=== PATIENT | male | born 1990 | race Caucasian/White ===

== ENCOUNTER 2019-02-27 18:24 | Emergency (ER) | payer BC, SELFPAY ==
[2019-02-27 18:30] VITALS: BP 137/64; PULSE 110; RESP 16; TEMP 36.6; O2SAT 93
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
--- NOTE | 2019-02-27 19:00 | NUR.NOTE ---
Nursing Note: Suture kit at bedside
--- NOTE | 2019-02-27 19:18 | NUR.NOTE ---
Nursing Note: Provider in to suture laceration. Patient cooperative at this time
--- NOTE | 2019-02-27 19:45 | NUR.NOTE ---
Nursing Note: Bacitracin to laceration. Tube gauze over left index finger. Patient tolerated well. S.O. back at bedside.
[2019-02-27 19:59] VITALS: BP 123/56; PULSE 95; RESP 16; O2SAT 100
== END 2019-02-27 19:55 | disposition home or self-care (01) ==
LOC: ER 20:01
PROVIDERS: Emergency Provider Physician Assistant; PCP Family Medicine
DX: S61.210A Laceration without foreign body of right index finger without damage to nail, initial encounter (principal); W25.XXXA Contact with sharp glass, initial encounter; Z53.29 Procedure and treatment not carried out because of patient's decision for other reasons
CPT/HCPCS: 12002

== ENCOUNTER 2019-09-03 21:03 | Emergency (ER) | payer BC, SELFPAY ==
[2019-09-03 21:07] VITALS: BP 131/67; PULSE 98; RESP 20; TEMP 36.6; O2SAT 100
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
--- NOTE | 2019-09-03 22:56 | DI.RAD_ITS ---
EXAM: XR FOOT RT COMPLETE CLINICAL HISTORY: pain. TECHNIQUE: 2D digital imaging was performed. COMPARISON: No exams were available for comparison FINDINGS: BONES: No acute fracture is present. No bony destructive lesion is seen. The bony detail in the fore foot and midfoot is limited due to the overlying bandages. JOINTS: No dislocation present. SOFT TISSUE: There is soft tissue swelling of the forefoot. No radiopaque foreign bodies are seen in the soft tissues. IMPRESSION: No acute fracture, dislocation or radiopaque foreign body. DATA REPOSITORY: RADIATION DOSE DELIVERED:
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
[2019-09-04] MEDS: Ciprofloxacin 500 MG TAB PO (00:48)
[2019-09-04 01:14] VITALS: BP 134/86; PULSE 86; RESP 18; TEMP 37.3; O2SAT 97
== END 2019-09-04 00:56 | disposition home or self-care (01) ==
PROVIDERS: Emergency Provider Physician Assistant; PCP Family Medicine
DX: S92.81 Other fracture of foot (principal); S91.311A Laceration without foreign body, right foot, initial encounter; V94.0XXA Hitting object or bottom of body of water due to fall from watercraft, initial encounter; F10.120 Alcohol abuse with intoxication, uncomplicated
CPT/HCPCS: 12004; 90471; 99283; 73630; 99282; E0114

== ENCOUNTER 2022-08-31 15:29 | Emergency (ER) | payer SELFPAY ==
[2022-08-31 15:33] VITALS: BP 119/65; PULSE 90; RESP 20; TEMP 36.8; O2SAT 100
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
--- NOTE | 2022-08-31 15:59 | W.ED.GENAD ---
Discharge Plan Disposition Patient Disposition: Home Discharge Details Clinical Impression: Fracture, patella, Bony exostosis, Closed dislocation of left patella Primary Care Provider: Rosamaria Hernandez V ED Provider: Handy Su Home Meds and New Rx's Prescriptions: Discontinued ciprofloxacin HCl [Cipro] 500 mg tablet 500 mg PO BID Qty: 14 0RF Patient Comments: Rx finished nicotine [Nicoderm CQ] 21 mg/24 hr Patch 24 Hour 1 patch .Q24 HOURS Patient Comments: does not use Discharge Instructions Instructions: Patellar Fracture (ED), Patellar Dislocation (ED), Knee Immobilizer (ED) Additional Instructions: You may continue to use uenu-xpe-[id number] pain medication such as acetaminophen or ibuprofen for pain, apply ice for swelling, and keep immobilizer on. Please call the orthopedic office on Friday for arrangement of follow-up appointment and feel free to return the emergency department for any new or significant worsening of symptoms. You may use your home crutches as needed but also perform weightbearing activities as tolerated. Stand Alone Forms: Work Release Referrals: [facility] [Provider Group] (Please call the office on Friday for arrangement of follow-up appointment) Discharge Data Discharge Date/Time-TO BE ENTERED AT DEPARTURE: 08/31/22 17:53 Medical Decision Making Patient presenting to the emergency department for chief complaint of left knee injury. Patient states he was out fishing and caught his foot on a rock and had a twisting type motion with injury to his knee. He stated he looked down and his kneecap had been significantly displaced laterally. States he struck his knee on the lateral aspect really hard 3 times and finally got the kneecap to go back into place. Afterwards he made a makeshift splint and got himself out of the lorenzo. Patient denies any other injury or trauma. States no previous history of patellar dislocation or knee problems. Physical exam shows significant difficulty with any ligamentous testing due to pain and discomfort, patella is aligned to midline at this point. Any palpation of the patella or attempted movement of the patella causes significant pain and discomfort. Exam is otherwise unremarkable. We will perform radiological imaging for evaluation of suspected patellar dislocation and fracture. Pending results will give patient ketorolac Review of radiological imaging shows appropriate alignment of patella with medial patellar fracture. There is also an abnormal bony exostosis noted on the distal femur. Will refer patient to orthopedics. Patient placed in knee immobilizer and was offered crutches but patient states he already has crutches at home. Patient instructed on management of injury along with return and follow-up precautions. After discussion of diagnosis and plan of care patient has no further needs, questions, or concerns and states clear understanding to return to the emergency department for any worsening symptoms. This documentation was generated using [employer] dictation system, please disregard any oddities of phrase or misspellings. Imaging Data Radiologic Study: Imaging: X-Ray Radiologist's impression: Exam(s) PROCEDURE INFORMATION: Exam: XR Left Knee Exam date and time: 08/31/2022 4:20 PM Age: 31 years old Clinical indication: Pain; Left; Patient HX: Knee injury, patellar dislocation TECHNIQUE: Imaging protocol: Radiologic exam of the left knee. Views: 4 or more views. COMPARISON: No relevant prior studies available. FINDINGS: Bones/joints: There is a fairly large bony exostosis in the posterior aspect of the distal femoral shaft. Patella is anatomically aligned. There is a medial bone density chip seen likely from the medial wall of the patella. There appears to be a lipohemarthrosis present in the joint. Bony alignment is otherwise anatomic. Soft tissues: Normal. IMPRESSION: 1. Medial patellar fracture, minimal with anatomic alignment and small lipohemarthrosis. 2. Distal femur posterior bony exostosis. Follow-up recommended. HPI General Mode of arrival: wheelchair. Date/Time Provider Initiated Documentation: 08/31/22 15:37. Limitations to Documentation: no limitations. Information obtained by: patient, family and RN notes reviewed. History of Present Illness 31 year old M presents to the emergency department with the chief complaint of left knee injury, described as moderate, Quality is described as aching and sharp, and is localized to the left and lower extremity. Patient reports no radiation. Patient started experiencing this hour(s) (7) and it has been constant. Immobilization improves symptom(s), Movement worsens symptoms . Patient notes no other symptoms.. Patient did receive the following treatments prior to arrival, none Related Data Allergies Allergy/AdvReac Type Severity Reaction Status Date / Time No Known Allergies Allergy Unverified 08/31/22 15:39 General Stated Complaint: Orthopedic SHABBIR: 3 Review of Systems Narrative: 6 systems reviewed and unremarkable except what is marked below. Musculoskeletal Musculoskeletal: Reports as per HPI, Reports arthralgias, Reports joint swelling, Reports limited range of motion, Denies numbness and Denies tingling Neurologic Neurologic: Denies numbness and Denies tingling PFSH All Active Problems (Updated 08/31/22 @ 17:31 by Handy Su NP) Fracture, patella (Acute) Bony exostosis (Acute) Closed dislocation of left patella (Acute) Medical History (Updated 08/31/22 @ 17:31 by Handy Su NP) No significant past medical history Surgical History History of hand surgery Social History Smoking/Tobacco Use Status: Current every day Tobacco Type: cigarettes Smoking risk assessment performed?: Yes Drug use: Never Do you feel safe at home: Yes Do you feel safe in your relationship?: Yes Exam Const General: cooperative, no acute distress and not ill appearing Orientation: alert, awake and oriented x3 HENMT Mouth: moist mucous membranes Resp Effort & Inspection: normal respiratory effort, able to speak in complete sentences and no respiratory distress Cardio Rate: regular rate Rhythm: regular rhythm Pulses: normal peripheral pulses Skin General skin exam: no rashes or lesions noted Neuro General: patient alert, patient awake, patient oriented x3, moves all extremities and no focal motor deficits Sensory Exam: no sensory deficits noted Extrem General: normal exam except as noted Left lower extremity: knee Details: tenderness Location: of the patella and of the lateral joint line, swelling Location: of the patella and abnormal ROM Details: held in an abnormal fashion Details: in extension, pain with active ROM and pain with passive ROM; able to extend lower leg actively Course Vital Signs Vital signs: Vital Signs Temperature 36.8 C 08/31/22 15:33 Pulse 90 08/31/22 15:33 Respiratory Rate 20 08/31/22 15:33 Blood Pressure 119/65 08/31/22 15:33 Pulse Oximetry 100 08/31/22 15:33 Temperature 36.8 C 08/31/22 15:33 Temperature Source Skin 08/31/22 15:33 Pulse 90 08/31/22 15:33 Respiratory Rate 20 08/31/22 15:33 Blood Pressure 119/65 08/31/22 15:33 Blood Pressure Position Sitting 08/31/22 15:33 Pulse Oximetry 100 08/31/22 15:33 Oxygen Delivery Method Room Air 08/31/22 15:33 Oxygen Flow Rate 0 08/31/22 15:33 Pain Level 5 08/31/22 15:33
[2022-08-31] MEDS: Ketorolac 10 MG TAB PO (16:04)
--- NOTE | 2022-08-31 16:34 | DI.VRAD_ITS ---
PROCEDURE INFORMATION: Exam: XR Left Knee Exam date and time: 08/31/2022 4:20 PM Age: 31 years old Clinical indication: Pain; Left; Patient HX: Knee injury, patellar dislocation TECHNIQUE: Imaging protocol: Radiologic exam of the left knee. Views: 4 or more views. COMPARISON: No relevant prior studies available. FINDINGS: Bones/joints: There is a fairly large bony exostosis in the posterior aspect of the distal femoral shaft. Patella is anatomically aligned. There is a medial bone density chip seen likely from the medial wall of the patella. There appears to be a lipohemarthrosis present in the joint. Bony alignment is otherwise anatomic. Soft tissues: Normal. IMPRESSION: 1. Medial patellar fracture, minimal with anatomic alignment and small lipohemarthrosis. 2. Distal femur posterior bony exostosis. Follow-up recommended. Dictated and Authenticated by: Marla Hernández MD. Ordering:KEAGAN Murrell MD
[2022-08-31 16:44] VITALS: O2SAT 99
[2022-08-31 16:50] VITALS: O2SAT 96
[2022-08-31 17:00] VITALS: O2SAT 97
== END 2022-08-31 17:53 | disposition home or self-care (01) ==
PROVIDERS: Emergency Provider Nurse Practitioner Family; PCP Family Medicine
DX: S82.002A Unspecified fracture of left patella, initial encounter for closed fracture (principal); M89.9 Disorder of bone, unspecified; W01.0XXA Fall on same level from slipping, tripping and stumbling without subsequent striking against object, initial encounter
CPT/HCPCS: 29505; 99283; 73564

== ENCOUNTER 2022-09-26 02:21 | Outpatient (CLI) | payer MEDICAID, SELFPAY ==
--- NOTE | 2022-09-26 09:00 | DI.MRI_ITS ---
Exam(s) MR LOWER JOINT LT WO EXAM: MR LOWER JOINT LT WO CLINICAL HISTORY: PATELLAR DISCLOCATION,DISTAL FEMUR OSTEOCHONDROMA.FX,BONY EXOSTOSIS. TECHNIQUE: Multiplanar multisequence MRI was performed. COMPARISON: CR,XR XR KNEE LT 4V AP,LAT,MARU,PAT from 08/31/2022 03 September 2022 FINDINGS: BONES: Fracture at the inferomedial border of the patella. Severe contusion of the anterior portion lateral femoral condyle. Mild contusion of the posterior aspect of the lateral tibial plateau. Larg e exostosis seen off the posteromedial aspect of the distal femoral metaphysis. There is surrounding edema in the musculature but no evidence of a mass. JOINTS: A large joint effusion is present. Articular cartilage: Patellofemoral joint: Articular cartilage is unremarkable. Medial femoral tibial joint: Articular cartilage is unremarkable. Lateral femoral tibial joint: Articular cartilage is unremarkable. TENDONS: Extensor mechanism: There is edema within fibers of distal quadriceps tendon but no focal tear is vis ible. Patellar tendon appears intact. Medial retinaculum: Significant surrounding edema. No focal tear visible. Lateral retinaculum: Unremarkable. Popliteus: Unremarkable. MUSCLES: Unremarkable. MENISCI: The medial meniscus shows a horizontally oriented tear extending to the superior articular s urface. Additional stellate tear in the body. The lateral meniscus is unremarkable. SOFT TISSUES: Edema in the subcutaneous fat greatest anteriorly. LIGAMENTS: Anterior Cruciate: Small amount of surrounding edema but no evidence of tear. Posterior Cruciate: Unremarkable. Medial Collateral:Surrounding edema but no visible tear. Lateral Collateral: Unremarkable. IMPRESSION: Fracture at the inferomedial border of the patella. Severe contusion of the lateral femoral condyle. Complex tear of the body and posterior horn of the medial meniscus. Large exostosis of the distal femur without suspicious features. DATA REPOSITORY:
== END 2022-09-26 02:41 ==
LOC: DI 02:21
PROVIDERS: PCP Family Medicine; Visit Provider Student in an Organized Health Care Education/Training Program
DX: S82.022A Displaced longitudinal fracture of left patella, initial encounter for closed fracture; S80.01XA Contusion of right knee, initial encounter; S83.231A Complex tear of medial meniscus, current injury, right knee, initial encounter; X58.XXXA Exposure to other specified factors, initial encounter
CPT/HCPCS: 73721

== ENCOUNTER 2022-10-18 02:02 | Outpatient (CLI) | payer MEDICAID, SELFPAY ==
[2022-10-18 14:44] LABS: Calculated LDL 124 mg/dL (<100); Cholesterol 184 mg/dL (<200); HDL Cholesterol 52 mg/dL (40-60); Triglyceride 44 mg/dL (<150)
== END 2022-10-18 02:03 | disposition home or self-care (01) ==
PROVIDERS: PCP Family Medicine; Visit Provider Family Medicine
DX: Z13.220 Encounter for screening for lipoid disorders (principal); Z13.1 Encounter for screening for diabetes mellitus; Z00.00 Encounter for general adult medical examination without abnormal findings
CPT/HCPCS: 36415; 80061; 83036

== ENCOUNTER 2022-10-24 08:31 | Day surgery (SDC) | payer MEDICAID, SELFPAY ==
[2022-10-24] VITALS (11 sets, daily range): BP systolic 115–138; BP diastolic 66–86; PULSE 75–90; RESP 11–16; TEMP 36.1–36.7; O2SAT 94–99; BMI 28.0
--- NOTE | 2022-10-24 07:20 | PDOC.DSDIS_ITS ---
Date of service: 10/24/22 Time of Service: 15:00 Discharge Plan Disposition Patient Disposition: Home Condition: Stable Discharge Details Attending Provider: Ashish Joseph Primary Care Provider: Rosamaria Hernandez V Home Meds and New Rx's Prescriptions: New naproxen 250 mg tablet 250 - 500 mg PO BID PRNQty: 40 0RF Rx Instructions: take with a meal aspirin 81 mg tablet,delayed release (DR/EC) 81 mg PO DAILY 30 Days Qty: 30 0RF oxycodone 5 mg tablet 5 - 10 mg PO Q4H MDD 30 mg PRN (Reason: moderate to severe pain) Qty: 18 0RF Discharge Instructions Additional Instructions: Surgery: Left knee arthroscopy with medial meniscus repair and bone marrow stimulation, and open MPFL avulsion repair Activity: Weightbearing in full extension-only for 6 weeks. Use crutches and/or brace as needed to protect and maintain knee straight. Seated/ non- weight bearing flexion 0-90 degrees maximum for 6 weeks. 120 degrees maximum flexion for 8 weeks. Spin/bike after 8 weeks. No weighted deeper flexion (squats, lunges) for 10 weeks. A physical therapy prescription will be sent electronically to start in about 2-3 weeks. Recommend elevation to minimize swelling discomfort. Wiggle toes and perform ankle pumps to reduce risk of blood clot and prevent stiffness. Prescriptions: Aspirin 81 mg take 1 daily to prevent a blood clot for 30 days Naproxen 250 mg take 1-2 every 12 hours with a meal as needed for moderate pain Oxycodone 5 mg take 1-2 every 4-6 hours as needed for severe pain You may use uhoy-apm-dxtharr Tylenol (acetaminophen) as needed for mild pain. These pain medications may be taken all at once or in different combinations as needed. Also, recommend Colace (docusate) as a stool softener as surgery and pain medicine cause constipation. You may try cjwk-qpk-fanciex diphenhydramine (Benadryl) 25-50 mg nightly as a sleep aid Dressings: Leave dressing in place for 5 days. May then remove and leave open to air or cover incisions with Band-Aids. Leave the sticky Steri-Strips in place until they fall off or remove them after you shower. May shower after 7 days. Follow-up: 10-[address] Joseph You may take off the leg compression stockings this evening at home. You may also leave them on a few days longer if you have a history of leg swelling or edema. Let us know right away if you develop any redness, drainage, fevers, chest pain, or trouble breathing. Do not drink alcohol or drive for at least 24 hours after anesthesia. Please call the office during business hours with any questions or concerns. DS: Diagnosis Discharge Diagnosis (1) Closed dislocation of left patella: Status: Acute (2) Tear of medial meniscus of left knee: Status: Acute
--- NOTE | 2022-10-24 07:21 | ROE_ITS ---
Date of service: 10/24/22 Time of Service: 11:00 Operative Note Operative Note DATE OF PROCEDURE: 10/24/22 PRE-OP DIAGNOSIS: Left knee 1. Medial meniscus tear 2. Patella dislocation POST-OP DIAGNOSIS: same PROCEDURE: Left knee 1. Arthroscopic medial meniscus repair, CPT #97315 2. Arthroscopic intercondylar microfracture as a bone marrow stimulation, CPT #04759 3. Open medial patellofemoral ligament avulsion repair, CPT #58369 SURGEON: Ashish Joseph ELECTRICAL RESEARCH ENGINEER: Jose C Sanderson ANESTHESIA TYPE: Local By Surgeon and General LMA/ETT Refer to Anesthesia Record ESTIMATED BLOOD LOSS: 5 PATHOLOGY: none sent TOURNIQUET TIME: 0 Patient was transported to: PACU Patient's condition: stable Implants: Arthrex FiberStitch x4 Arthrex 4.75 mm SwiveLock x1 Indications: Please see complete medical record for details. Findings: Exam under anesthesia: Full range of motion, stable varus valgus Ozzy and anterior drawer. Moderately excessive lateral patella translation without dislocation. No lateral tightness or tilt. Arthroscopic findings: Moderate hemorrhagic synovitis and moderate effusion. Complex posterior horn medial meniscus tear predominantly vertical red zone with some central horizontal component involving the red-white zone but majority of the tear near the capsular margin. Stable posterior horn near the root, stable root, uninjured body and anterior horn. Intact ACL. Intact cuticular cartilage. Intact lateral meniscus. Visualized just on the far side of the capsule medial patellar ovoid avulsion injury tissue. Procedure Description: In the operating room, general anesthesia was induced. The patient was positioned supine on the operating room table. All bony prominences were well- padded. Preoperative antibiotics were administered. The knee was prepped and draped in the usual sterile fashion. The correct patient, procedure, and side of the procedure were all verified prior to incision. Exam under anesthesia was performed. 20 cc of bupivacaine and epinephrine containing epinephrine were infiltrated about the planned anteromedial and anterolateral portals as well as about the medial parapatellar incision. The portals were established and a complete diagnostic arthroscopy was performed with relevant findings detailed above. Of note, the bulbous defect on the MRI corresponding to the medial patellar defect was visualized as extracapsular. A needle was used to localize this lesion for later open repair. A minor synovectomy was done using mechanical shaver to remove abundant inflamed synovium from the patellofemoral and intercondylar areas. The medial meniscus was thoroughly probed and inspected. Given the patient's young age and predominantly red zone vertical type tear, the decision was made to proceed with repair. An 8 x 3 mm passport was placed in the anteromedial portal. The anterior lateral portal was dilated to best accommodate instrument passage. The meniscal rasp was used to abrade the tear zone thoroughly and attempt to optimize tissue healing. The shaver was used to lightly debride the tear zone. The knee was positioned in full extension with valgus stress. Viewing through anterior medial and working through the anterior lateral portal the all?inside meniscus repair was completed using Arthrex FiberStich. Initial vertical mattress repair stitch was placed and then removed given less than ideal reduction, and replaced with another initial repair suture in the mid to anterior zone of the tear to reapproximate the tear edges,. Additional vertical mattress repair stitches were placed more posteriorly and anteriorly to the initial middle. Once these were tensioned, as expected, the provisional repair suture was somewhat loose and removed. It was replaced with a final fourth vertical repair suture. The repair was stable. There were no additional tears, the root remained stable. A small 1.1 mm K wire was then directed from anterior lateral to the bare area distal to the PCL attachment on the medial femoral condyle and used to make multiple drilling perforations into the subchondral bone as a microfracture to aid in isolated meniscal repair healing. Proper expression of bone marrow elements was confirmed with inflow turned off. The knee was drained of arthroscopic fluid. A small longitudinal medial parapatellar incision was made using the needle localization centrally. There was some healing about the medial aspect of the patella but the defect was readily encountered with probes. The medial margin of patella was rasped to improve bone tissue healing. The gibson and firm avulsed tissue was probed adjacent to the medial facet patellar injury. It was fairly stable, but not healed to the medial bony margin of patella. Although the MPFL attaches more proximally the patellar defect was more inferiomedial so repair was centered at the medial aspect of the patella to incorporate both the avulsed fragment tissue and the MPFL surrounding tissue. A 2.5 mm drill was used to drill a 20 mm hole for the suture anchor centrally taking care to direct into the midportion of the patella. The SwiveLock tap was then used to finish preparation and a 4.75 mm bio composite swivel lock anchor was deployed having been loaded with 2 pairs of suture tape. A free needle was then used to shuttle the 4 free suture tape ends from deep to superficial incorporating the firm avulsed tissue spanning the zone of injury from proximal to distal. The knee was positioned in about 30 degrees of flexion, patella position appropriately in the trochlear groove, each pair was then tied securing the repair to the medial aspect of the patella quite well. The FiberWire sliding sutures were then used to adjunct the repair with a free needle used to pass each corresponding pair into the medial and lateral tissue more superficially and then secured [id number] bringing additional tissue and tension up onto an adjacent to the repair and medial aspect of the patella. The patella was examined in extension and demonstrated appropriate lateral translation with strong endpoint. Appropriately mobile and positioned into the groove into flexion. The open incision was copiously irrigated normal saline. An additional 10 cc of 0.25% bupivacaine plain was infiltrated about the open incision site. Subcutaneous tissue was closed with 2-0 Monocryl buried interrupted. Skin lucia sed using 3-0 Monocryl running subcuticular. Steri-Strips and Xeroform applied over the incision. The anteromedial and anterolateral portals were closed in 3- 0 Monocryl in a buried interrupted fashion. Mastisol, Steri-Strips, and 4 x 4 gauze were applied over the incisions followed by sterile soft roll. The knee was then wrapped gently with an RIVER comressive bandage and placed into a knee immobilizer in extension. The patient awoke from anesthesia without complication and was transferred to the recovery room in a stable condition.
--- NOTE | 2022-10-24 09:31 | W.ANESPRE ---
General Info Date of Service Date Performed: 10/24/22 Height: 6 ft Weight: 93.7 kg Body Mass Index (BMI): 28.0 Surgical Procedure: Operation Date: 10/24/22 10:10 Proposed Procedure Side Surgeon p Knee Arthroscopy w Meniscus Repair, any indicated meniscal, chondral and synovial surgery Left Ashish Joseph MD Meds Allergies and Home Medications Allergies Allergy/AdvReac Type Severity Reaction Status Date / Time varenicline [From Chantix] Allergy Intermediate Hives Unverified 10/24/22 08:48 Home Medication Medication Instructions Recorded Unknown [No Known Home Meds] 09/10/22 Current Visit Medications: Current Medications Generic Name Dose Route Start Last Admin Trade Name Freq PRN Reason Stop Dose Admin Ringer's Solution 1,000 mls @ 30 mls/hr 10/24/22 06:00 IV 11/22/22 23:59 INFUSION JAMIA Cefazolin Sodium/Dextrose 2 gm in 50 mls @ 100 mls/hr 10/24/22 06:00 Ancef Duplex IVPB 10/24/22 16:00 PREOP JAMIA IV Miscellaneous Supplies 1 each 10/24/22 06:00 Iv Access IV 11/22/22 23:59 DIRECTED JAMIA Sodium Chloride 0 ml 10/24/22 06:00 Normal Saline Flush 10 Ml Syr IV 11/22/22 23:59 PRN PRN Sodium Chloride 0 ml 10/24/22 06:00 Normal Saline 10 Ml Vial IJ 11/22/22 23:59 DIRECTED PRN Sterile Water 0 ml 10/24/22 06:00 Water,Injection,Sterile 10 Ml Vial IJ 11/22/22 23:59 DIRECTED PRN PFSH Active Problems Active Problems: Problem Status Onset Code Closed dislocation of left patella 08/31/22 S83.005A Left patella fracture ~08/31/22 S82.002A Tear of medial meniscus of left knee ~08/31/22 S83.242A Medical History Medical History No significant past medical history Medical History Comments:: Per pt as he was waking from anesthesia on past surgery he was told he was trying to get out of bed to leave and needed to be restrained possiby/redirected. Surgical History Surgical History History of hand surgery Tobacco Smoking/Tobacco Use Status: Current every day Tobacco Type: cigarettes Smoking cigarettes per day: 10 Alcohol Alcohol Intake: current Alcohol intake frequency: a few times a week Alcohol type: beer Substance Use Substance use: Never Substance use type: does not use Vital Signs and Lab Results Vital Signs Most Recent Vital Signs in EMR: Most Recent Vital Signs Temp Pulse Resp BP Pulse Ox 36.1 C L 90 16 125/77 99 10/24/22 08:52 10/24/22 08:52 10/24/22 08:52 10/24/22 08:52 10/24/22 08:52 Lab Results Blood Type / Crossmatch: No Data to Display Complete Blood Count: No Data to Display Complete Metabolic Panel: Hemoglobin A1c 5.0 % (<5.7) 10/18/22 14:04 Liver Function Panel: No Data to Display Coagulation Panel: No Data to Display Cardiac Panel: No Data to Display Arterial Blood Gas: No Data to Display Venous Blood Gas: No Data to Display Pancreas Panel: No Data to Display Thyroid Panel: No Data to Display Infectious Disease: No Data to Display Blood Cultures: No Data to Display Toxicology Panel: No Data to Display Anesthesia Assessment and Plan Anesthesia History Personal History: No History of Anesthesia Complications Family History: No Family History of Anesthesia Complications Exercise Tolerance Exercise Tolerance: Metabolic Equivalents>4 Pertinent Negatives Pertinent Negatives: No Symptoms of GERD, No Major Cardiovascular Symptoms or Complaints and No Major Pulmonary Symptoms or Complaints Cardiac & Pulmonary Exam Cardiac Exam: Normal S1/S2 Heart Sounds Pulmonary Exam: Clear Bilateral Breath Sounds Implantable Cardiac Device Does patient have a Pacemaker or an ICD?: No Airway Exam Known Difficult Airway: No Mallampati Class: 2 Mouth Opening: Normal (> 3cm) Thyromental Distance: Greater than 3 cm Neck Range of Motion: Full ROM Neck Circumference: Normal Teeth Condition: Normal Dentition ASA Classification ASA Score: ASA 2 Emergency Case?: No NPO Status NPO Status: NPO Clears >2 hours, Solids >8 hours Anesthesia Plan Resuscitation Status: Full Code Anesthesia Technique: General Anesthesia Airway Planned: Endotracheal Tube Monitors Used: Standard Monitors
[2022-10-24] MEDS: Lactated Ringers 1,000 ML 30 ML IV (09:43)
[2022-10-24] MEDS: ceFAZolin 2 GM/50 ML BAG IVPB (09:53)
[2022-10-24] MEDS: EPINEPHrine 30 MG/30 ML VIAL (12:09)
[2022-10-24] MEDS: Bupivacaine 0.25% Pres-Free 30 ML VIAL (12:09)
[2022-10-24] MEDS: Lidocaine 1% Multi-Dose W/EPI 1/100,000 50 ML VIAL (12:10)
[2022-10-24] MEDS: HYDROmorphone 2 MG/ML SYR IVP ×4 (13:25→13:55)
[2022-10-24] MEDS: Normal Saline 10 ML VIAL IJ (13:25)
[2022-10-24] MEDS: oxyCODONE 5 MG TAB PO (15:30)
[2022-10-24] MEDS: Ondansetron O.D.T. 4 MG TABEF PO (15:30)
== END 2022-10-24 15:40 | disposition home or self-care (01) ==
PROVIDERS: PCP Family Medicine; Visit Provider Student in an Organized Health Care Education/Training Program
PROC: (CPT 27405; principal; 2022-10-24 10:00)
DX: S83.005A Unspecified dislocation of left patella, initial encounter (principal); S83.242A Other tear of medial meniscus, current injury, left knee, initial encounter; S82.002A Unspecified fracture of left patella, initial encounter for closed fracture; F17.210 Nicotine dependence, cigarettes, uncomplicated; X58.XXXA Exposure to other specified factors, initial encounter
CPT/HCPCS: 27405; 29882; 29879; J0690; J1100; J1170; J1885; J2250; J2270; J2405; J2704

== ENCOUNTER 2023-01-07 14:35 | Outpatient (CLI) | payer MEDICAID, SELFPAY ==
--- NOTE | 2023-01-07 14:00 | DI.RAD_ITS ---
Exam(s) XR KNEE LT 3V AP,LAT,MARU EXAM: XR KNEE LT 3V AP,LAT,MARU CLINICAL HISTORY: meniscus f/u. TECHNIQUE: 2D digital imaging was performed of the left knee. Three images were obtained. Merchant ,AP and lateral views were obtained. COMPARISON: CR,XR XR KNEE LT 4V AP,LAT,MARU,PAT from 08/31/2022 FINDINGS: BONES: The bony fragment medial to the patella is unchanged. No bony destructive lesion is seen. Mi ld osteopenia. There is again subtle exostosis arising from the distal femur. JOINTS: The knee is normally aligned. There is a small joint effusion present. No loose body. SOFT TISSUE: Normal. IMPRESSION: 1. Stable patellar fracture. 2. Small joint effusion. 3. Stable exostosis. DATA REPOSITORY: RADIATION DOSE DELIVERED:
== END 2023-01-07 14:36 | disposition home or self-care (01) ==
LOC: DIORS 14:35
PROVIDERS: PCP Family Medicine; Visit Provider Student in an Organized Health Care Education/Training Program
DX: S83.242D Other tear of medial meniscus, current injury, left knee, subsequent encounter (principal); X58.XXXD Exposure to other specified factors, subsequent encounter
CPT/HCPCS: 73562

== ENCOUNTER → 2023-03-14 00:47 | Outpatient (CLI) | payer MEDICAID, SELFPAY ==
--- NOTE | 2023-03-14 10:15 | DI.MRI_ITS ---
Exam(s) MR LOWER JOINT LT WO EXAM: MR LOWER JOINT LT WO CLINICAL HISTORY: L KNEE PAIN M23.92 INTERNAL DERANGEMENT LEFT KNEE. TECHNIQUE: Multiplanar multisequence MRI was performed. COMPARISON: MR MR LOWER JOINT LT WO from 09/26/2022 CR XR KNEE LT 3V AP,LAT,MARU from 01/07/2023 FINDINGS: BONES: Some edema remains present in medial border of patella. Bony densities noted adjacent to medi al border the patella. Screw now in place in medial patella. JOINTS: Small to moderate-sized joint effusion is present. Articular cartilage: Patellofemoral joint: Articular cartilage is unremarkable. Medial femoral tibial joint: Articular cartilage is unremarkable. Lateral femoral tibial joint: Articular cartilage is unremarkable. TENDONS: Extensor mechanism: Unremarkable. Medial retinaculum: Unremarkable. Lateral retinaculum: Unremarkable. Popliteus: Unremarkable. MUSCLES: Unremarkable. MENISCI: The medial meniscus arm postsurgical changes at the posterior horn and body. Evaluation somewhat garcia ited due to metallic artifacts.. The lateral meniscus is unremarkable. SOFT TISSUES: Minimal anterior edema. Mild metallic artifacts noted on the anterior soft tissues and in medial soft tissues of the level of the medial meniscus. LIGAMENTS: Anterior Cruciate: Unremarkable. Posterior Cruciate: Unremarkable. Medial Collateral:Unremarkable. Lateral Collateral: Unremarkable. IMPRESSION: Old fracture the medial border of the patella. Postsurgical changes of the medial meniscus. DATA REPOSITORY:
== END ==
PROVIDERS: PCP Family Medicine; Visit Provider Student in an Organized Health Care Education/Training Program
DX: S82.034D Nondisplaced transverse fracture of right patella, subsequent encounter for closed fracture with routine healing (principal); Z98.890 Other specified postprocedural states; X58.XXXD Exposure to other specified factors, subsequent encounter
CPT/HCPCS: 73721